=== PATIENT | male | born 1995 ===

== ENCOUNTER 2024-03-28 15:13 | Emergency (ER) | payer OTHER ==
[2024-03-28] MEDS: Ketorolac 30 MG/ML SDV IM ONE (16:23)
[2024-03-28] MEDS: traMADol 50 MG Tab PO ONE (16:24)
== END 2024-03-28 16:40 | disposition home or self-care (01) ==
LOC: LB.ED 15:13
DX: S52.572A Other intraarticular fracture of lower end of left radius, initial encounter for closed fracture (principal); W18.40XA Slipping, tripping and stumbling without falling, unspecified, initial encounter
CPT/HCPCS: 73130; 96372; 99283; A9270; J1885